=== PATIENT | female | born 1960 | race Caucasian/White ===

== ENCOUNTER 2016-12-07 21:14 | Emergency (ER) | payer OTHER, MEDICARE ==
[~2016-12-07] VITALS: Ht 167.6 cm; Wt 59.0 kg
[~2016-12-07 21:14] MED LIST: AMOXICILLIN875 M1 PO; ANTIVERT25 MG PO; ZOFRAN4 M2 PO
--- NOTE | 2016-12-08 00:01 | ED GI/GU/ABDOMINAL COMPLAINT ---
History of Present Illness General Chief Complaint: Female Urogenital Problems Stated Complaint: UTI, LOW BACK PAIN, NAUSEOUS Source: patient Exam Limitations: no limitations Vital Signs & Intake/Output Vital Signs & Intake/Output Vital Signs Date Time Temp Pulse Resp B/P B/P Pulse O2 O2 Flow FiO2 Mean Ox Delivery Rate 12/08 0101 98.3 58 18 120/74 99 12/07 2306 97.0 56 20 126/58 99 Room Air 12/07 2121 97.3 61 18 117/76 98 Room Air ED Intake and Output 12/08 0000 12/07 1200 Intake Total Output Total Balance Patient 130 lb Weight Weight Reported by Patient Measurement Method Allergies Coded Allergies: levofloxacin (From LEVAQUIN) (CONSTIPATION 01/28/16) nitrofurantoin (From MACROBID) (WHITE SPOTS ON TOUNGE 12/15/15) Reconcile Medications Amoxicillin 875 MG TABLET 1 TAB PO BID OM Cephalexin (Keflex) 500 MG CAPSULE 1 CAP PO TID urine infection Meclizine (Antivert) 25 MG TABLET 1 TAB PO TID PRN DIZZINESS Ondansetron HCl (Zofran) 4 MG TABLET 1 TAB PO TID PRN NAUSEA Phenazopyridine HCl (Pyridium) 100 MG TABLET 1 TAB PO TID PRN urine discomfort Triage Note: PT TO TRIAGE WITH UTI [id number], AND BILAT FLANK PAIN 02/04 AND NUASEA SINCE YESTERDAY. ALSO BURNING WITH URINATION AND BLOOD IN URINE. PT HAS BEEN ON ANTIBIOTICS WITH NO RELIEF. VSS. AFEBRILE. Triage Nurses Notes Reviewed? yes ? n Is pt currently ? No HPI: Ms. Romo is a 56 yo f w/ PMH HLD and hypoglycemia presenting to the ED for dysuria and low back pain. Patient states she developed a UTI approximately 3 weeks ago and she was started on Bactrim. She had some respiratory issues with the Bactrim and she was changed to Cipro. Patient states she took the full course of Cipro and finished it last week however only some of her symptoms resolved. She still continues to have some mild hematuria as well as discomfort with urination, but not pain. Patient doesn't endorse increased urinary frequency which continues. He was called by her [employer] and told that the activity area from the urine came back to be resistant to Cipro. She was then started on amoxicillin with clavulanic acid on Saturday. Patient states she took that for 3 days and her symptoms have not improved. Since yesterday she started developing low back pain. She says the pain has since worsened and it is located in the low back bilaterally. Patient endorses subjective fevers and chills. No chest pain, nausea, vomiting, abdominal pain. Patient does endorse some abdominal distention as well as some diarrhea. Patient denies any weight loss or decreased appetite. No confusion. (DEON HUBBARD MD) Past History Travel History Traveled to [place] past 21 day No Medical History Any Pertinent Medical History? 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 No (DEON HUBBARD MD) Review of Systems Review of Systems Constitutional: Reports: see HPI. Comments Review of systems: See HPI, All other systems negative. Constitutional: no chills no fever, no malaise no weight loss HEENT: No visual changes, no sore throat, no congestion, no ear pain Cardiovascular: No chest pain , no palpitations, no orthopnea Skin: no rashes, no change in skin Respiratory: No dyspnea no cough no sputum no hemoptysis GI: No nausea, no vomiting, no diarrhea, no bloating/constipation : +urinary freq, + hematuria, +urinary freq Musculoskeletal: No joint pain, no joint swelling, no back pain, no neck pain Neurologic: No numbness no confusion, no headache Heme/endocrine: No bruising no bleeding Immunology: No lymphadenopathy (DEON HUBBARD MD) Physical Exam Physical Exam General Appearance: well developed/nourished, no apparent distress, alert, awake , mild distress Head: atraumatic, normal appearance Eyes: Bilateral: normal appearance, PERRL, EOMI, normal inspection. Ears, Nose, Throat, Mouth: hearing grossly normal, moist mucous membrane Neck: normal inspection, supple Respiratory: normal breath sounds, chest non-tender, no respiratory distress Cardiovascular: regular rate/rhythm Gastrointestinal: normal bowel sounds, soft, non-tender, No CVA tenderness bilaterally Back: normal inspection, normal range of motion Extremities: normal range of motion Neurologic/Psych: no motor/sensory deficits, awake, alert, oriented x 3, normal gait, normal mood/affect Skin: intact, normal color, warm/dry Core Measures ACS in differential dx? No Severe Sepsis Present: No Septic Shock Present: No (STEVIE MOE,DEON) Progress Differential Diagnosis: cholecystitis, diverticulitis, kidney stone, PUD/GERD, UTI/pyelo Plan of Care: Orders Procedure Date/time Status LACTIC ACID 12/08 0249 Active Add-on Test (ER Only) 12/08 0000 Active CULTURE,URINE 12/07 234 Active LACTIC ACID 12/07 234 Complete COMPREHENSIVE METABOLIC PANEL 12/07 2348 Complete CBC WITHOUT DIFFERENTIAL 12/07 2348 Complete URINALYSIS 12/07 2124 Complete Laboratory Tests 12/07/165: Anion Gap 8, Estimated GFR 52 L, BUN/Creatinine Ratio 13.6, Glucose 96, Lactic Acid 0.7, Calcium 9.7, Total Bilirubin 0.3, AST 23, ALT 32, Alkaline Phosphatase 35, Total Protein 6.7, Albumin 4.1, Globulin 2.6, Albumin/Globulin Ratio 1.6, CBC w Diff NO MAN DIFF REQ, RBC 3.91 L, MCV 98.0, MCH 32.5 H, RDW 12.7, MPV 8.4, Gran % 59.7, Lymphocytes % 26.9, Monocytes % 8.8, Eosinophils % 4.0, Basophils % 0.6, Absolute Granulocytes 4.5, Absolute Lymphocytes 2.0, Absolute Monocytes 0.7 H, Absolute Eosinophils 0.3, Absolute Basophils 0, PUBS MCHC 33.2 12/07/162133: Urine Color STRAW, Urine Clarity CLEAR, Urine pH 7.0, Ur Specific [place] 1.010, Urine Protein NEG, Urine Ketones NEG, Urine Nitrite NEG, Urine Bilirubin NEG, Urine Urobilinogen 0.2, Ur Leukocyte Esterase TRACE H, Ur Microscopic SEDIMENT EXAMINED, Urine RBC RARE, Urine WBC RARE, Ur Epithelial Cells RARE, Urine Bacteria RARE H, Urine Hemoglobin TRACE-INTACT, Urine Glucose NEG Microbiology 12/08 0031 URINE ROUT: Urine Culture - CAN Cancelled: DUPLICATE ORDER 12/07 2348 URINE ROUT: Urine Culture - ORD Initial ED EKG: none (DEON HUBBARD MD) Departure Departure Time of Disposition: 157 Disposition: HOME OR SELF CARE Condition: Stable Clinical Impression Primary Impression: UTI (urinary tract infection) Qualifiers: Urinary tract infection type: acute cystitis Hematuria presence: with hematuria Qualified Code: N30.01 - Acute cystitis with hematuria Referrals: ISAURO MOE,LAVONNE Mijares (PCP/Family) Additional Instructions: You were given a dose of ceftriaxone here in the ED today. You will be given a prescription for Keflex for the next 3 days. You should take the Keflex 3 times a day for 3 days. You will also be given a prescription for Pyridium to help with your urinary discomfort. Do not be surprised if your urine and tears become orange from the Pyridium. This is a common side effect. Your symptoms should resolve within the next 2 or 3 days. If they do not, please follow-up with your primary care doctor. Departure Forms: Customer Survey General Discharge Information Prescriptions: Current Visit Scripts Cephalexin (Keflex) 1 CAP PO TID #9 CAP Phenazopyridine HCl (Pyridium) 1 TAB PO TID PRN urine discomfort #15 TAB (DEON HUBBARD MD) Resident Co-Sign Statement Statement: ED Attending supervision documentation- [X] I saw and evaluated the patient. I have also reviewed all the pertinent lab results and diagnostic results. I agree with the findings and the plan of care as documented in the Resident's documentation. [X] I have reviewed the ED Record and agree with the Resident's documentation. [] Additions or exceptions (if any) to the Resident's note and plan are summarized below: [] (KELLY MOE,ROGER Zavala)
[2016-12-08 00:10] LABS: ABSOLUTE BASOPHIL COUNT 0 /CUMM (0.0-0.2); ABSOLUTE EOSINOPHIL COUNT 0.3 /CUMM (0.0-0.7); ABSOLUTE GRANULOCYTE CT 4.5 /CUMM (1.4-6.5); ABSOLUTE MONOCYTE COUNT 0.7 /CUMM (0.10-0.60); BASOPHIL % 0.6 % (0.0-2.0); GRANULOCYTE % 59.7 % (42.2-75.2); HEMATOCRIT 38.3 % (37-47); MEAN CORPUSCULAR HGB 32.5 PG (27.0-31.0); MEAN CORPUSCULAR HGB CONC 33.2 G/DL (33.0-37.0); MEAN PLATELET VOLUME 8.4 FL (7.4-10.4); PLATELET COUNT 367 /CUMM (130-400); RBC DISTRIBUTION WIDTH 12.7 % (11.5-14.5); RED BLOOD CELL CT 3.91 /CUMM (4.20-5.40); WHITE BLOOD CELL COUNT 7.5 /CUMM (4.8-10.8)
[2016-12-08] MEDS ORDERED: KEFLEX500 M1 PO (02:02)
[2016-12-08] MEDS ORDERED: PYRIDIUM100 M1 PO (02:02)
[2016-12-08 02:05] VITALS: BP 122/72
== END 2016-12-08 02:15 ==
LOC: ERH 21:14
PROVIDERS: Emergency Medicine
DX: N39.0 Urinary tract infection, site not specified (principal); R50.9 Fever, unspecified
CPT/HCPCS: 81001; 87086; 96374; J0696